=== PATIENT | male | born 1990 | race Caucasian/White ===

== ENCOUNTER 2017-06-19 13:56 | Emergency (ER) | payer MEDICAID ==
[~2017-06-19] VITALS: Ht 182.9 cm; Wt 165.0 kg
[2017-06-19 17:11] LABS: BASOPHILS % (AUTO) 0.2 % (0.0-2.0); EOSINOPHILS % (AUTO) 0.1 % (1.0-6.0); HEMATOCRIT 40.1 % (41-53); HEMOGLOBIN 13.6 g/dL (13.5-17.5); LYMPHOCYTES # (AUTO) 1.2 K/uL (1.0-4.8); LYMPHOCYTES % (AUTO) 8.9 % (22.0-44.0); MEAN CORPUSCULAR HEMOGLOBIN 27.7 pg (26.0-34.0); MEAN CORPUSCULAR VOLUME 81 fL (80-100); MONOCYTES # (AUTO) 0.6 K/uL (0.1-1.0); MONOCYTES % (AUTO) 4.3 % (2.0-9.0); NEUTROPHILS # (AUTO) 11.8 K/uL (1.8-7.7); PLATELET COUNT (AUTO) 280 K/uL (150-450); RED BLOOD CELL COUNT(AUTO) 4.92 MIL/uL (4.50-5.90)
[2017-06-19 17:14] LABS: NEUTROPHILS % (AUTO) 86.5 % (40.0-70.0)
[2017-06-19 17:28] LABS: ANION GAP 10 mmol/L (8-16); CALCIUM, TOTAL 9.8 mg/dL (8.8-10.5); CARBON DIOXIDE 28 mmol/L (22-29); CHLORIDE 101 mmol/L (98-107); CREATININE 0.87 mg/dL (0.60-1.30); GLOMERULAR FILTR. RATE CALC > 60 mL/min (>60); GLUCOSE,RANDOM 130 mg/dL (70-110); POTASSIUM 4.4 mmol/L (3.5-5.1); SODIUM SERUM 139 mmol/L (136-145); UREA NITROGEN, BLOOD 10 mg/dL (7-18)
[2017-06-19 17:30] LABS: ALANINE AMINOTRANSFERASE 55 U/L (12-78); ALBUMIN 3.7 g/dL (3.4-5.0); ALKALINE PHOSPHATASE 86 U/L (46-116); ASPARTATE AMINOTRANSFERASE 22 U/L (15-37); BILIRUBIN,TOTAL 0.2 mg/dL (0.1-1.0); LIPASE 54 U/L (73-393); TOTAL PROTEIN, SERUM 9.1 g/dL (6.4-8.2)
[2017-06-19 18:08] VITALS: BP 137/82
== END 2017-06-19 19:38 | disposition home or self-care (01) ==
LOC: EMS 13:58
DX: K42.9 Umbilical hernia without obstruction or gangrene (principal); Z87.891 Personal history of nicotine dependence
CPT/HCPCS: 99284

== ENCOUNTER 2018-03-01 08:51 | Emergency (ER) | payer MEDICAID ==
[~2018-03-01] VITALS: Ht 185.4 cm; Wt 151.8 kg
[2018-03-01] MEDS ORDERED: IBUPROFEN 600 MG TABLET PO ONE (10:30)
[2018-03-01 11:18] VITALS: BP 137/74
== END 2018-03-01 11:19 | disposition home or self-care (01) ==
LOC: EMS 09:10
DX: M25.552 Pain in left hip (principal); M54.5 Low back pain
CPT/HCPCS: 73503; 99284